=== PATIENT | female | born 1975 | race African-American/Black ===

== ENCOUNTER 2017-07-03 22:55 | Emergency (ER) | payer OTHER ==
[2017-07-03] MEDS ORDERED: Famotidine/PF 20 mg/2ml Vial ONE (23:39)
[2017-07-03] MEDS ORDERED: methylPREDNISolone Sod Succ/PF 125 MG/2 ML VIAL ONE (23:39)
[2017-07-03] MEDS ORDERED: Water For Inject, Bacteriostat 30 ML ONE (23:41)
== END 2017-07-04 01:00 | disposition home or self-care (01) ==
LOC: ERS 22:55
DX: T78.40XA Allergy, unspecified, initial encounter (principal); E11.9 Type 2 diabetes mellitus without complications; I10 Essential (primary) hypertension
CPT/HCPCS: 96374; 96375; J2930; S0028

== ENCOUNTER 2018-04-18 09:15 | Outpatient (CLI) | payer OTHER | END 2018-04-18 09:16 | disposition home or self-care (01) | LOC: BICMAMMO 09:15 | PROVIDERS: ATTEND Family Medicine | DX: Z12.31 Encounter for screening mammogram for malignant neoplasm of breast (principal); R92.1 Mammographic calcification found on diagnostic imaging of breast; Z80.3 Family history of malignant neoplasm of breast | CPT/HCPCS: 77063; 77067 ==